=== PATIENT | male | born 1985 | race Asian ===

== ENCOUNTER 2018-03-22 15:59 | Emergency (ER) | payer SELFPAY ==
[~2018-03-22] VITALS: Ht 175.3 cm; Wt 76.0 kg
[2018-03-22 16:30] VITALS: BP 119/64
== END 2018-03-22 20:58 | disposition left against medical advice (07) ==
LOC: ER 15:59
DX: R51 Headache (principal); Z53.21 Procedure and treatment not carried out due to patient leaving prior to being seen by health care provider